=== PATIENT | female | born 1995 | race American Indian/Alaskan Native ===

== ENCOUNTER 2018-09-12 13:45 | Emergency (ER) | payer SELFPAY ==
[2018-09-12 13:55] VITALS: BP 127/61
--- NOTE | 2018-09-12 14:34 | Event Note ---
ED Screening Note Date of service: 09/12/18 Time: 14:04 ED Screening Note: 23 y/o female comes in for vaginal discharge times 3 days. No n/v, no vaginal bleeding. LMP 08/30/18. This initial assessment/diagnostic orders/clinical plan/treatment(s) is/are subject to change based on patients health status, clinical progression and re- assessment by fellow clinical providers in the ED. Further treatment and workup at subsequent clinical providers discretion. Patient/guardian urged not to elope from the ED as their condition may be serious if not clinically assessed and managed. Initial orders include:
--- NOTE | 2018-09-12 14:48 | Emergency Department Report ---
ED Female HPI - General Chief complaint: Urogenital-Female Stated complaint: VAGINAL IRRITATION Time Seen by Provider: 09/12/18 14:28 Source: patient Mode of arrival: Ambulatory Limitations: No Limitations - History of Present Illness Initial comments: Patient is a 23-year-old female presents the emergency room with complaints of vaginal discharge for the last 4 days. She states the discharge is clear/ white with a foul-smelling odor. Has associated vaginal irritation. she denies any vaginal itching, urinary symptoms, abdominal pain, nausea or vomiting, fever. Denies any STD history. denies any past medical history allergies to medications. She is sexually active with women. - Related Data Previous Rx's Medication Instructions Recorded Last Taken Type metroNIDAZOLE [Flagyl] 500 mg PO BID 7 Days #14 tab 09/12/18 Unknown Rx Allergies Allergy/AdvReac Type Severity Reaction Status Date / Time No Known Allergies Allergy Verified 09/12/18 14:05 ED Review of Systems ROS: Stated complaint: VAGINAL IRRITATION Other details as noted in HPI Comment: All other systems reviewed and negative ED Past Medical Hx - Past Medical History Previous Medical History?: No - Surgical History Past Surgical History?: No - Social History Smoking Status: Never Smoker Substance Use Type: Alcohol - Medications Home Medications: Home Medications Medication Instructions Recorded Confirmed Last Taken Type metroNIDAZOLE [Flagyl] 500 mg PO BID 7 Days #14 tab 09/12/18 Unknown Rx ED Physical Exam - General Limitations: No Limitations General appearance: alert, in no apparent distress - Head Head exam: Present: atraumatic, normocephalic - Eye Eye exam: Present: normal appearance, PERRL - ENT ENT exam: Present: mucous membranes moist - Respiratory Respiratory exam: Present: normal lung sounds bilaterally. Absent: respiratory distress, wheezes, rales, rhonchi, stridor, chest wall tenderness, accessory muscle use, decreased breath sounds, prolonged expiratory - Cardiovascular Cardiovascular Exam: Present: regular rate, normal rhythm, normal heart sounds. Absent: systolic murmur, diastolic murmur, rubs, gallop - GI/Abdominal GI/Abdominal exam: Present: soft, normal bowel sounds. Absent: distended, tenderness, guarding, rebound, rigid - External exam: Present: normal external exam. Absent: erythema, swelling, lesions, lacerations, ecchymosis, bleeding Speculum exam: Present: vaginal discharge (white/clear with odor), cervical discharge (white/clear with odor), other (crisis clinician: JOSEPH ruiz). Absent: vaginal bleeding, foreign body, tissue Bi-manual exam: Present: normal bi-manual exam. Absent: cervical motion tendernes, adnexal tenderness, adnexal mass - Back Exam Back exam: Absent: CVA tenderness (R), CVA tenderness (L) - Neurological Exam Neurological exam: Present: alert, oriented X3 - Psychiatric Psychiatric exam: Present: normal affect, normal mood - Skin Skin exam: Present: warm, dry, intact ED Course Vital Signs 09/12/18 13:55 Temperature 98.6 F Pulse Rate 75 Respiratory 18 Rate Blood Pressure 127/61 [Right] O2 Sat by Pulse 100 Oximetry ED Medical Decision Making - Lab Data Lab Results 09/12/18 Range/Units Unknown Urine Color Yellow (Yellow) Urine Turbidity Slightly-cloudy (Clear) Urine pH 6.0 (5.0-7.0) Ur Specific [place] 1.019 (1.003-1.030) Urine Protein <15 mg/dl (Negative) mg/dL Urine Glucose (UA) Neg (Negative) mg/dL Urine Ketones Neg (Negative) mg/dL Urine Blood Neg (Negative) Urine Nitrite Neg (Negative) Urine Bilirubin Neg (Negative) Urine Urobilinogen < 2.0 (<2.0) mg/dL Ur Leukocyte Esterase Neg (Negative) Urine WBC (Auto) 2.0 (0.0-6.0) /HPF Urine RBC (Auto) 2.0 (0.0-6.0) /HPF U Epithel Cells (Auto) 8.0 (0-13.0) /HPF Urine Mucus Few /HPF Urine HCG, Qual Negative (Negative) - Medical Decision Making Patient is a 23-year-old female presents the emergency room with complaints of vaginal discharge for the last 4 days. She states the discharge is clear/ white with a foul-smelling odor. Has associated vaginal irritation. she denies any vaginal itching, urinary symptoms, abdominal pain, nausea or vomiting, fever. Denies any STD history. denies any past medical history allergies to medications. She is sexually active with women. UA is normal. Wet prep shows evidence of bacterial vaginosis. Pt swabbed for G/C advised to follow-up with medical records in one week for results of tests to see if she needs further treatment. Given prescription for Flagyl. Advised to take as prescribed. Do not drink alcohol while taking. Follow-up with a primary care doctor and [facility] in the next few days. Return to the emergency room for any new or worsening symptoms. - Differential Diagnosis UTI, yeast, BV, STD, vaginitis Critical care attestation.: If time is entered above; I have spent that time in minutes in the direct care of this critically ill patient, excluding procedure time. ED Disposition Clinical Impression: BV (bacterial vaginosis) Disposition: - TO HOME OR SELFCARE Is pt being admited?: No Does the pt Need Aspirin: No Condition: Stable Instructions: Bacterial Vaginosis (ED) Additional Instructions: Please take medication as prescribed. Do not drink alcohol while taking medication. Follow-up with a primary care doctor and [facility] in the next few days. Return to the emergency room for any new or worsening symptoms. check back with medical records in 1 week for results of your test to see if you need further treatment. Prescriptions: metroNIDAZOLE [Flagyl] 500 mg PO BID 7 Days #14 tab Referrals: GEORGIANA ROSENBAUM MD [Primary Care Provider] - 2-3 Days Forms: STI Treatment and Prevention Time of Disposition: 16:33 Print Language: MONGOLIAN
[2018-09-12 16:04] LABS: Bilirubin,Urine NEG (Negative); Blood,Urine NEG (Negative); Color,Urine Yellow (Yellow); Mucus,Urine FEW /HPF; Protein,Urine <15 mg/dL mg/dL (Negative); Urobilinogen,Urine < 2.0 mg/dL (<2.0)
[2018-09-12 16:09] LABS: HCG Qualitative,Urine Negative (Negative)
== END 2018-09-12 16:54 | disposition home or self-care (01) ==
LOC: ED 13:45
DX: N76.0 Acute vaginitis (principal); B96.89 Other specified bacterial agents as the cause of diseases classified elsewhere
CPT/HCPCS: 81001; 81025; 87210; 87591